=== PATIENT | male | born 1965 | race Two or more races ===

== ENCOUNTER → 2017-03-04 | Outpatient (REF) | payer OTHER | LOC: M SMT 17:05 | PROVIDERS: ATTEND Nurse Practitioner Women's Health | DX: R97.20 Elevated prostate specific antigen [PSA] (principal) ==

== ENCOUNTER → 2017-03-18 | Outpatient (CLI) | payer OTHER ==
--- NOTE | 2017-03-18 12:20 | REP ---
Prostate sonography: History: Elevated PSA. Sonographic findings: Trans rectal prostate sonography demonstrates unremarkable seminal vesicles. Prostate gland is heterogeneously enlarged with calcifications and cystic changes noted. Glandular dimensions are measured at 4.4 x 3.1 x 5.0 cm with a calculated glandular volume of 35.5 ml. Transrectal sonographic guidance provided to Dr. Kern who performed trans rectal ultrasound guided needle biopsy procedure . Signed by Bryant Quiroz MD 03/18/2017 12:11 P
== END ==
LOC: M SMT PRO 08:55
PROVIDERS: ATTEND Urology
DX: C61 Malignant neoplasm of prostate (principal)
CPT/HCPCS: 55700; 76872; 76942; G0416

== ENCOUNTER → 2017-04-29 | Outpatient (CLI) | payer OTHER ==
--- NOTE | 2017-04-30 11:55 | RADONC ---
RADIATION ONCOLOGY CONSULTATION NOTE DATE: 04/29/2017 CHART NUMBER: [id number] DIAGNOSIS: Prostate cancer. STAGE: IIA, [id number]. ECOG PERFORMANCE STATUS: 0 CONSULTATION NOTE: Mr. Elder is a very pleasant 52-year-old white male with the diagnosis of what appears to be a stage IIA, [id number], Clayton score 7 (3-4) adenocarcinoma of the prostate with a PSA level 4.7 who is presenting to us today for an opinion regarding his therapeutic options. The patient has been seen by Dr. Kern as well as a physician at [facility] for a discussion as well. HISTORY OF PRESENT ILLNESS: Apparently the patient had a PSA level done in February of last year and it was 2. I do not have an actual copy of that report. By February of this year it had risen to 4.7. On 03/18/2017 the patient underwent prostatic needle biopsy and pathology revealed a Yanna score 7 (3-4) adenocarcinoma involving the left side of his prostate. The left mid prostate sample involved 70% of the core with malignancy. His other biopsies showed a Clayton 6 as well as a Clayton pattern 3. He has done well since biopsy and is now presenting once again to discuss his therapeutic options. He reports that at this time he is leaning towards observation. PAST MEDICAL HISTORY: The patient's past medical history is positive for hypertension and hypercholesterolemia. ALLERGIES: The patient has NO KNOWN DRUG ALLERGIES. SOCIAL HISTORY: The patient does not smoke cigarettes. He drinks alcohol socially. FAMILY HISTORY: The patient's family history is positive for a father who developed prostate cancer at 63 and in his early 70s. He also had a grandfather and at a paternal great uncle with prostate cancer. REVIEW OF SYSTEMS: The patient's review of systems is basically noncontributory. He denies nausea, vomiting, fevers, chills, night sweats, diplopia, headaches, anxiety or depression, anorexia, weight loss, visual disturbances, chest pain, urinary or bowel difficulties, bone pain or neurological problems. PHYSICAL EXAMINATION: Physical examination was deferred at this point. ASSESSMENT: I had a very lengthy discussion with this patient and his regarding their various options. We discussed the possibility of external beam radiation therapy as a therapeutic option. I discussed in detail the potential benefits as well as possible acute and chronic sequelae of external beam radiation therapy. We discussed the logistics treatment planning, simulation, and subsequent fractionated daily radiation treatments. At his age, I made clear surgery is usually preferred. I discussed the advantages and disadvantages of both surgery versus radiation. It has been recommended to him that it is possible for him to undergo observation. I believe this is a possibility. I did make it clear to the patient that this is not a definitive curative modality of treatment. I made clear to him the risks of observation versus surgery. He is also aware of the side effects of surgery. I let the patient know that I would consider repeating a PSA in June. My concern in this patient is the more than doubling speed of his PSA in 1 year. I do not have an actual copy of the reports, but the patient said the PSA was 2 one year ago and has jumped to 4.7 which has more than doubled in the year. I think it oliva to repeat the PSA level in June and see if it is continuing its progression. If it is continuing its progression, I would be somewhat concerned about just observing this malignancy. Since radiation would not be the primary modality of choice I have not set him up here with any followup. He is continuing his followup with his urologist as well as his primary care doctor. He will be following through with a repeat PSA in June. He is also scheduled for an MRI of the prostate to be undertaken soon. I have given the patient my cell phone number and said he should feel free to call me if I could be of any assistance in the future. Once again, if the patient does choose observation I think close observation would be indicated considering his rather rapid rise in PSA level. Thank you once again for allowing us to participate in the care of this very pleasant gentleman. cc: Adolfo Kern MD [facility]
== END ==
LOC: M ONCR 09:10
PROVIDERS: ATTEND Radiology Radiation Oncology
DX: C61 Malignant neoplasm of prostate (principal)

== ENCOUNTER → 2017-05-15 | Outpatient (CLI) | payer OTHER ==
[~2017-05-15] MED LIST: PROHANCE 279.3MG/ML 15ML VIAL (A9576) As Ordered ONE; PROHANCE 279.3MG/ML 5ML VIAL (A9576) As Ordered ONE
--- NOTE | 2017-05-20 10:59 | REP ---
MULTIPARAMETRIC PROSTATE MRI STUDY WITH AND WITHOUT IV GADOLINIUM: HISTORY: Elevated PSA. TECHNIQUE: Using a phased array surface coil, small field of view imaging was acquired using T2-weighted scans in the axial, coronal, and sagittal imaging planes. Small field of view diffusion-weighted sequences are acquired. Small field of view axial T1-weighted scans are acquired dynamically after the intravenous administration of 17 mL of ProHance. Using a large field of view, the entire pelvis to the level of the aortic bifurcation was imaged using pre-contrast axial T1 and post-contrast axial T1 fat-saturation images. The prostate measures 4.7 x 3.5 x 3.9 cm for a total volume of 30.4 mL. Seminal vesicles are symmetrical and unremarkable. No adenopathy is seen in the pelvis and no bone lesions are seen. There is a small left inguinal hernia containing fat. Three areas of interest are identified in the prostate demonstrating abnormal signal intensity and enhancement. First in the right basilar and mid posterior peripheral zone and apical lateral peripheral zone is a geographic area of ill-defined low signal on T2 weighted imaged which demonstrates predominantly type III enhancement. The area measures approximately 2.1 x 1.3 x 2.4 cm for a total volume of 2.98 mL. Overall level of suspicion is 3 out of 5 with clinically significant cancer equivocal. Some of these areas may represent prostatitis. The second lesion is located in the left basilar posterior peripheral zone and transitional zone, mid posterior peripheral zone, and transitional zone and apical posterior peripheral zone. The area measures approximately 2.5 x 1.5 x 2.1 cm for a total volume of 4.53 mL. There are ill-defined areas of low signal on T2-weighted images and the area demonstrates predominantly type III enhancement. Overall level suspicious 3 out to 5 with clinically significant cancer equivocal. Finally in the midline in the mid anterior fibromuscular stroma and left apical anterior fibromuscular stroma there is a geographic area of low signal on T2. This demonstrates predominantly type I enhancement characteristics. The area measures approximately 2.0 x 0.4 x 1.4 cm for a total volume of 1.11 mL. Overall level of suspicion is 3 out to 5 with clinically significant cancer equivocal. IMPRESSION: Several focal abnormalities in the prostate gland with three regions of interest identified as discussed in detail above. Signed by Milton Leach MD 05/21/2017 09:00 A
== END ==
LOC: M RAD 08:55
PROVIDERS: ATTEND Internal Medicine
DX: Z08 Encounter for follow-up examination after completed treatment for malignant neoplasm (principal); Z85.46 Personal history of malignant neoplasm of prostate
CPT/HCPCS: 72197; A9576

== ENCOUNTER → 2018-04-07 | Outpatient (CLI) | payer OTHER | LOC: M SMT PRO 08:25 | DX: C61 Malignant neoplasm of prostate (principal) | CPT/HCPCS: G0416 ==

== ENCOUNTER 2019-04-29 12:12 | Day surgery (SDC) | payer OTHER ==
[~2019-04-29] VITALS: Ht 172.7 cm; Wt 88.0 kg
[~2019-04-29 12:12] MED LIST changes: +CHOL100029 PO; +LIPI10TA PO; +LISI10TA4 PO; +NS 1,000 ML IV SCH; -PROHANCE 279.3MG/ML 15ML VIAL (A9576) As Ordered ONE; -PROHANCE 279.3MG/ML 5ML VIAL (A9576) As Ordered ONE
[2019-04-29] MEDS ORDERED: PROPOFOL 200 MG/20 ML VIAL As Ordered ONE ×2 (12:13→14:36)
[2019-04-29] MEDS ORDERED: LIDOCAINE 2% INJ 100 MG/5 ML SDV (FOR ANES.) As Ordered ONE (12:13)
[2019-04-29 15:25] VITALS: BP 138/81
--- NOTE | 2019-04-29 15:50 | ROOR ---
Patient Name: Scott Elder Procedure Date: 04/29/2019 2:10 PM Date of : 1965 Age: 54 Room: [facility] Gender: Male Note Status: Finalized Procedure: Colonoscopy Indications: Screening in patient at increased risk: Family history of 1st-degree relative with colorectal cancer, Last colonoscopy: May 2013 Providers: Tito Charlton MD Referring MD: Kel Reilly Md Requesting Provider: Medicines: Monitored Anesthesia Care Complications: No immediate complications. Procedure: Pre-Anesthesia Assessment: - Prior to the procedure, a History and Physical was performed, and patient medications and allergies were reviewed. The patient is competent. The risks and benefits of the procedure and the sedation options and risks were discussed with the patient. All questions were answered and informed consent was obtained. Patient identification and proposed procedure were verified by the physician, the nurse and the anesthesiologist in the procedure room. Mental Status Examination: alert and oriented. CV Examination: regular rate and rhythm. Prophylactic Antibiotics: The patient does not require prophylactic antibiotics. Prior Anticoagulants: The patient has taken no previous anticoagulant or antiplatelet agents. ASA Grade Assessment: II - A patient with mild systemic disease. After reviewing the risks and benefits, the patient was deemed in satisfactory condition to undergo the procedure. The anesthesia plan was to use monitored anesthesia care (MAC). Immediately prior to administration of medications, the patient was re-assessed for adequacy to receive sedatives. The heart rate, respiratory rate, oxygen saturations, blood pressure, adequacy of pulmonary ventilation, and response to care were monitored throughout the procedure. The physical status of the patient was re-assessed after the procedure. The Colonoscope was introduced through the anus and advanced to the cecum, identified by appendiceal orifice and ileocecal valve. The colonoscopy was performed without difficulty. The patient tolerated the procedure well. The quality of the bowel preparation was excellent. Findings: The perianal and digital rectal examinations were normal. A 3 mm polyp was found in the rectum. The polyp was sessile. The polyp was removed with a jumbo cold forceps. Resection and retrieval were complete. Multiple small-mouthed diverticula were found in the sigmoid colon. Impression: - One 3 mm polyp in the rectum, removed with a jumbo cold forceps. Resected and retrieved. - Diverticulosis in the sigmoid colon. Recommendation: - Discharge patient to home. - Resume previous diet. - Continue present medications. - Await pathology results. - If the pathology report reveals adenomatous tissue, then repeat the colonoscopy for surveillance in 5 years. Tito Charlton MD Tito Charlton MD 04/29/2019 3:34:21 PM Electronically signed by Tito Charlton MD Number of Addenda: 0 Note Initiated On: 04/29/2019 2:10 PM Estimated Blood Loss: Estimated blood loss was minimal.
== END 2019-04-29 15:29 | disposition home or self-care (01) ==
LOC: M OPP 12:12
PROVIDERS: ATTEND Surgery
DX: Z12.11 Encounter for screening for malignant neoplasm of colon (principal); Z80.0 Family history of malignant neoplasm of digestive organs; K52.1 Toxic gastroenteritis and colitis; K57.30 Diverticulosis of large intestine without perforation or abscess without bleeding; Z79.899 Other long term (current) drug therapy

== ENCOUNTER → 2019-05-11 | Outpatient (CLI) | payer OTHER ==
[~2019-05-11] MED LIST changes: -NS 1,000 ML IV SCH
--- NOTE | 2019-05-11 11:04 | REPPI ---
TRANSRECTAL ULTRASOUND GUIDANCE FOR PROSTATE BIOPSY: Transrectal ultrasound guidance is provided for Dr. Kern who performed ultrasound guided biopsy of the prostate gland. The prostate measures 4.6 x 2.5 x 4.8 cm for a total volume of 28.8 mL. Echotexture appears heterogeneous with tiny calcifications noted. Electronically Signed by Milton Leach MD 05/11/2019 12:02 P
== END ==
LOC: M SMT PRO 08:43
PROVIDERS: ATTEND Urology
DX: C61 Malignant neoplasm of prostate (principal)
CPT/HCPCS: 55700; 76942; G0416

== ENCOUNTER → 2021-06-12 | Outpatient (REF) | payer OTHER ==
[~2021-06-12] MED LIST changes: +LISI10TA22 PO; -LISI10TA4 PO
== END ==
LOC: M SMT PRO 10:29
PROVIDERS: ATTEND Urology
DX: C61 Malignant neoplasm of prostate (principal)
CPT/HCPCS: 55700; 76942; G0416

== ENCOUNTER → 2021-06-14 | Outpatient (REF) | payer OTHER ==
[2021-06-14 17:34] LABS: AMORPHOUS SEDIMENT LARGE (NEGATIVE); APPEARANCE, URINE TURBID (CLEAR); BACTERIA, URINE AUTO 2+ (NEGATIVE); BILIRUBIN, URINE AUTO NEGATIVE (NEGATIVE); BLOOD, URINE BLOOD 3+ (NEGATIVE); COLOR, URINE YELLOW (YELLOW); GLUCOSE, URINE (UA) AUTO NEGATIVE (NEGATIVE); KETONE, URINE AUTO NEGATIVE (NEGATIVE); LEUKOCYTE ESTERASE, URINE AUTO 3+ (NEGATIVE); MUCUS, URINE LARGE (NEGATIVE); NITRITE, URINE AUTO POSITIVE (NEGATIVE); PROTEIN, URINE AUTO 2+ mg/dL (NEGATIVE); RBC, URINE AUTO 10 /HPF (0-3); SPECIFIC GRAVITY URINE AUTO 1.021 (1.002-1.035); SQUAMOUS EPITHELIAL CELL UR AU 0 /HPF (0-6); UROBILINOGEN, URINE AUTO 0.2 mg/dL (0.0-2.0); WBC, URINE AUTO 165 /HPF (0-3)
== END ==
LOC: M SMT 16:59
PROVIDERS: ATTEND Urology
DX: N39.0 Urinary tract infection, site not specified (principal)

== ENCOUNTER → 2021-09-24 | Outpatient (REF) | payer OTHER ==
[2021-09-24 14:06] LABS: APPEARANCE, URINE CLEAR (CLEAR); BACTERIA, URINE AUTO 1+ (NEGATIVE); BILIRUBIN, URINE AUTO NEGATIVE (NEGATIVE); BLOOD, URINE BLOOD NEGATIVE (NEGATIVE); COLOR, URINE YELLOW (YELLOW); GLUCOSE, URINE (UA) AUTO NEGATIVE (NEGATIVE); KETONE, URINE AUTO NEGATIVE (NEGATIVE); LEUKOCYTE ESTERASE, URINE AUTO TRACE (NEGATIVE); MUCUS, URINE SMALL (NEGATIVE); NITRITE, URINE AUTO POSITIVE (NEGATIVE); PROTEIN, URINE AUTO NEGATIVE (NEGATIVE); RBC, URINE AUTO 0 /HPF (0-3); SPECIFIC GRAVITY URINE AUTO 1.014 (1.002-1.035); SQUAMOUS EPITHELIAL CELL UR AU 0 /HPF (0-6); UROBILINOGEN, URINE AUTO 0.2 mg/dL (0.0-2.0); WBC, URINE AUTO 23 /HPF (0-3)
== END ==
LOC: M SMT 13:14
PROVIDERS: ATTEND Urology
DX: N39.0 Urinary tract infection, site not specified (principal)

== ENCOUNTER 2023-04-23 10:34 | Day surgery (SDC) | payer OTHER ==
[~2023-04-23] VITALS: Ht 172.7 cm; Wt 86.4 kg
[~2023-04-23 10:34] MED LIST changes: +LISI5TAB11 PO; +NS 1,000 ML IV ONE; +VITA-243 PO; +VITA100093 PO
[2023-04-23] MEDS ORDERED: propofoL 200 MG/20 ML VIAL As Ordered ONE (12:44)
[2023-04-23 12:56] VITALS: TEMP 97.3
[2023-04-23 13:15] VITALS: BP 135/90; O2SAT 96
== END 2023-04-23 13:27 | disposition home or self-care (01) ==
LOC: M OPP 10:34
PROVIDERS: ATTEND Surgery
DX: Z12.11 Encounter for screening for malignant neoplasm of colon (principal); D12.0 Benign neoplasm of cecum; D12.5 Benign neoplasm of sigmoid colon; K64.8 Other hemorrhoids; K64.4 Residual hemorrhoidal skin tags; K57.30 Diverticulosis of large intestine without perforation or abscess without bleeding; Z86.010 Personal history of colon polyps; Z83.711 Family history of hyperplastic colon polyps

== ENCOUNTER 2023-06-11 19:21 | Emergency (ER) | payer OTHER ==
[~2023-06-11] VITALS: Ht 172.7 cm; Wt 89.1 kg
[~2023-06-11 19:21] MED LIST changes: -NS 1,000 ML IV ONE
[2023-06-11 19:22] VITALS: BP 124/71; O2SAT 99
[2023-06-11 21:07] LABS: RSV AMPLIFICATION NEGATIVE (NEGATIVE)
[2023-06-11 21:46] VITALS: TEMP 100.3
== END 2023-06-11 21:50 | disposition left against medical advice (07) ==
LOC: M ED 19:21
DX: Z53.21 Procedure and treatment not carried out due to patient leaving prior to being seen by health care provider (principal)

== ENCOUNTER → 2025-04-12 | Outpatient (CLI) | payer OTHER | LOC: M RAD 10:10 | PROVIDERS: ATTEND Orthopaedic Surgery | DX: M25.521 Pain in right elbow (principal); M19.021 Primary osteoarthritis, right elbow; R60.0 Localized edema ==